=== PATIENT | female | born 1965 | race Caucasian/White ===

== ENCOUNTER 2020-04-22 17:00 | Emergency (ER) | payer OTHER ==
[2020-04-22] MEDS ORDERED: ETOMIDATE INJ 20MG/10ML VIAL As Ordered ONE (17:20)
[2020-04-22] MEDS ORDERED: SUCCINYLCHOLINE INJ 200 MG/10 ML VIAL (J0330) As Ordered ONE (17:21)
[2020-04-22 17:23] LABS: HEMATOCRIT 34.8 % (36.0-47.0); HEMOGLOBIN 12.1 g/dl (12.0-15.5); MEAN CORPUSCULAR HEMOGLOBIN 27.4 pg (27.0-33.0); MEAN CORPUSCULAR HGB CONC 34.8 g/dl (32.0-36.5); MEAN CORPUSCULAR VOLUME 78.7 fl (80.0-96.0); PLATELET COUNT, AUTOMATED 320 10^3/uL (150-450); RED BLOOD COUNT 4.42 10^6/uL (4.00-5.40)
[2020-04-22 17:26] LABS: WHITE BLOOD COUNT 13.6 10^3/uL (4.0-10.0)
[2020-04-22] MEDS ORDERED: propofoL 1,000 MG in IV 1 EA IV SCH (17:31)
[2020-04-22] MEDS ORDERED: PROPOFOL 1,000 MG/100 ML VIAL As Ordered ONE (17:31)
[2020-04-22 17:34] LABS: INR 1.03; PROTHROMBIN TIME 13.2 SECONDS (11.8-14.0)
[2020-04-22 17:35] VITALS: BP 142/87
[2020-04-22] MEDS ORDERED: SUCCINYLCHOLINE INJ 200 MG/10 ML VIAL (J0330) IV ONE (17:45)
[2020-04-22] MEDS ORDERED: ETOMIDATE INJ 20MG/10ML VIAL IV ONE (17:45)
[2020-04-22 17:52] LABS: ANISOCYTOSIS 1+; ATYPICAL LYMPH 3 % (0-5); EOSINOPHILS 1 % (0-3); HYPOCHROMASIA 1+; LYMPHOCYTES 47 % (16-44); MONOCYTES 2 % (0-5); NEUTROPHILS 40 % (28-66)
[2020-04-22 17:53] LABS: MICROCYTOSIS 1+; PLATELET CLUMPS MODERATE AMT; PLATELET ESTIMATE NORMAL (NORMAL); POLYCHROMASIA 1+
[2020-04-22 17:54] LABS: TEAR DROP CELLS 1+
[2020-04-22 18:13] LABS: ALBUMIN 3.1 GM/DL (3.2-5.2); ALT/SGPT 173 U/L (12-78); AMYLASE 17 U/L (25-115); BILIRUBIN,DIRECT 0.1 MG/DL (0.0-0.2); BILIRUBIN,TOTAL 0.4 MG/DL (0.2-1.0); BLOOD UREA NITROGEN 12 MG/DL (7-18); CALCIUM LEVEL 8.3 MG/DL (8.5-10.1); CARBON DIOXIDE LEVEL 22 MEQ/L (21-32); CHLORIDE LEVEL 95 MEQ/L (98-107); CK-MB VALUE MASS 5.3 NG/ML (<3.6); CPK CREATINE PHOSPHOKINASE 590 U/L (26-192); CREATININE FOR GFR 0.98 MG/DL (0.55-1.30); GLOMERULAR FILTRATION RATE > 60.0 (>51); GLUCOSE, FASTING 197 MG/DL (70-100); LIPASE 179 U/L (73-393); POTASSIUM SERUM 3.7 MEQ/L (3.5-5.1); SODIUM LEVEL 127 MEQ/L (136-145); TOTAL PROTEIN 5.9 GM/DL (6.4-8.2); TROPONIN I < 0.02 NG/ML (< 0.10)
[2020-04-22 18:14] LABS: ETHYL ALCOHOL (ETHANOL) < 0.003 % (0.000-0.010)
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
== END 2020-04-22 17:44 | disposition short-term general hospital (02) ==
LOC: M ED 17:00 → EDBD 17:00 → M ED 17:44
DX: T14.8XXA Other injury of unspecified body region, initial encounter (principal); V48.5XXA Car driver injured in noncollision transport accident in traffic accident, initial encounter; Y92.410 Unspecified street and highway as the place of occurrence of the external cause
CPT/HCPCS: 31500; 71045; 72170; 80047; 80048; 80076; 82150; 82550; 82553; 83690; 85025; 85610; 85730; 86850; 86900; 86901; 93041; 94760; 96374; 96375; 99291; G0480; J0330